=== PATIENT | female | born 1980 | race Caucasian/White ===

== ENCOUNTER 2017-08-26 18:10 | Inpatient (IN) | payer MEDICAID ==
[~2017-08-26] VITALS: Ht 172.7 cm; Wt 83.0 kg
[~2017-08-26 18:10] MED LIST: RISPC50 IM
[2017-08-26] MEDS ORDERED: HALOPERIDOL LACTATE 5 MG/ML VIAL IM ONE (22:45)
[2017-08-26] MEDS ORDERED: LORazepam 2 MG/ML VIAL IM ONE (22:45)
[2017-08-26] MEDS ORDERED: DiphenhydrAMINE HCL 50 MG/ML VIAL IM ONE (22:45)
[2017-08-27] MEDS ORDERED: HALOPERIDOL 5 MG TABLET PO PRN (00:30)
[2017-08-27] MEDS ORDERED: ZOLPIDEM TARTRATE 10 MG TABLET PO PRN (00:30)
[2017-08-27] MEDS ORDERED: LORazepam 2 MG TABLET PO PRN (00:30)
[2017-08-27 00:35] LABS: BASOPHILS % (AUTO) 0.6 % (0.0-2.0); EOSINOPHILS % (AUTO) 1.9 % (1.0-6.0); HEMATOCRIT 38.8 % (36-46); HEMOGLOBIN 13.4 g/dL (12.0-16.0); LYMPHOCYTES # (AUTO) 1.7 K/uL (1.0-4.8); LYMPHOCYTES % (AUTO) 23.8 % (22.0-44.0); MEAN CORPUSCULAR HEMOGLOBIN 30.2 pg (26.0-34.0); MEAN CORPUSCULAR HGB CONC 34.5 G/dL (31.0-37.0); MEAN CORPUSCULAR VOLUME 87 fL (80-100); MONOCYTES # (AUTO) 0.7 K/uL (0.1-1.0); MONOCYTES % (AUTO) 9.8 % (2.0-9.0); NEUTROPHILS # (AUTO) 4.5 K/uL (1.8-7.7); NEUTROPHILS % (AUTO) 63.9 % (40.0-70.0); PLATELET COUNT (AUTO) 298 K/uL (150-450); RED BLOOD CELL COUNT(AUTO) 4.45 MIL/uL (4.00-5.20); RED CELL DISTRIBUTION WIDTH 13.2 % (11.5-14.5)
[2017-08-27 00:43] LABS: ANION GAP 9 mmol/L (8-16); CALCIUM, TOTAL 8.1 mg/dL (8.8-10.5); CARBON DIOXIDE 26 mmol/L (22-29); CHLORIDE 100 mmol/L (98-107); CREATININE 0.75 mg/dL (0.60-1.30); GLOMERULAR FILTR. RATE CALC > 60 mL/min (>60); GLUCOSE,RANDOM 74 mg/dL (70-110); POTASSIUM 3.3 mmol/L (3.5-5.1); SODIUM SERUM 135 mmol/L (136-145); UREA NITROGEN, BLOOD 7 mg/dL (7-18)
[2017-08-27 00:49] LABS: ALANINE AMINOTRANSFERASE 23 U/L (12-78); ALBUMIN 3.3 g/dL (3.4-5.0); ALKALINE PHOSPHATASE 64 U/L (46-116); ASPARTATE AMINOTRANSFERASE 19 U/L (15-37); BILIRUBIN,TOTAL 0.4 mg/dL (0.1-1.0); CHOL/HDL RATIO 2.6 (3.9-5.7); CHOLESTEROL 126 mg/dL (131-200); HDL CHOLESTEROL 49 mg/dL (40-60); LDL CHOL (CALC.) 69 mg/dL (0-130); TRIGLYCERIDES 42 mg/dL (15-150)
[2017-08-27 11:51] VITALS: BP 109/63
[2017-08-27] MEDS ORDERED: POTASSIUM CHLORIDE 20 MEQ ER TABLET PO ONE (16:00)
[2017-08-27 16:30] VITALS: BP 110/78
[2017-08-27] MEDS: QUEtiapine FUMARATE 200 MG TABLET PO SCH (16:45)
[2017-08-27] MEDS: LITHIUM CARBONATE 300 MG CAPSULE PO SCH (16:45)
[2017-08-27] MEDS: DIVALPROEX SODIUM 500 MG DR TABLET PO SCH (16:45)
[2017-08-27] MEDS ORDERED: ACETAMINOPHEN 325 MG TABLET PO PRN (21:45)
[2017-08-27] MEDS ORDERED: DOCUSATE SODIUM 100 MG CAPSULE PO PRN (21:45)
[2017-08-27] MEDS ORDERED: ALBUTEROL SULFATE HFA 90 MCG/PUFF 8 GM INHALER IH PRN (21:45)
[2017-08-27] MEDS ORDERED: PETROLATUM,WHITE 71 GM JELLY TP PRN (21:45)
[2017-08-27] MEDS ORDERED: IBUPROFEN 400 MG TABLET PO PRN (21:45)
[2017-08-27] MEDS ORDERED: MAG HYDROX/AL HYDROX/SIMETH ES 30 ML SUSPENSION UDCUP PO PRN (21:45)
[2017-08-27] MEDS ORDERED: MAGNESIUM HYDROXIDE SUSPENSION 30 ML UDCUP PO PRN (21:45)
[2017-08-27] MEDS ORDERED: ONDANSETRON HCL 4 MG TABLET PO PRN (21:45)
[2017-08-28 07:05] VITALS: BP 115/74
[2017-08-28] MEDS: QUEtiapine FUMARATE 200 MG TABLET PO SCH ×2 (08:31→16:51)
[2017-08-28] MEDS: LITHIUM CARBONATE 300 MG CAPSULE PO SCH ×2 (08:32→16:50)
[2017-08-28] MEDS: NICOTINE 14 MG/24 HOUR PATCH TD SCH (08:32)
[2017-08-28] MEDS: DIVALPROEX SODIUM 500 MG DR TABLET PO SCH ×2 (08:32→16:50)
[2017-08-28 08:39] VITALS: BP 126/71
[2017-08-28 16:22] VITALS: BP 115/70
[2017-08-29 05:57] VITALS: BP 123/72
[2017-08-29 08:20] LABS: HEMOGLOBIN A1C 5.4 % (4.5-6.2)
[2017-08-29 08:24] VITALS: BP 126/74
[2017-08-29 08:37] LABS: CHOL/HDL RATIO 3.3 (3.9-5.7); POTASSIUM 4.1 mmol/L (3.5-5.1); THYROID STIMULATING HORMONE 0.29 uIU/mL (0.36-3.74)
[2017-08-29] MEDS: QUEtiapine FUMARATE 200 MG TABLET PO SCH ×2 (09:01→16:25)
[2017-08-29] MEDS: NICOTINE 14 MG/24 HOUR PATCH TD SCH (09:01)
[2017-08-29] MEDS: LITHIUM CARBONATE 300 MG CAPSULE PO SCH ×2 (09:02→16:25)
[2017-08-29] MEDS: DIVALPROEX SODIUM 500 MG DR TABLET PO SCH ×2 (09:02→16:25)
[2017-08-29 16:13] VITALS: BP 127/87
[2017-08-30 06:27] VITALS: BP 140/68
[2017-08-30] MEDS: QUEtiapine FUMARATE 200 MG TABLET PO SCH ×2 (08:29→16:59)
[2017-08-30] MEDS: LITHIUM CARBONATE 300 MG CAPSULE PO SCH ×2 (08:29→16:59)
[2017-08-30] MEDS: NICOTINE 14 MG/24 HOUR PATCH TD SCH (08:29)
[2017-08-30] MEDS: DIVALPROEX SODIUM 500 MG DR TABLET PO SCH ×2 (08:29→16:59)
[2017-08-30 08:37] VITALS: BP 131/73
[2017-08-30 16:45] VITALS: BP 109/79
[2017-08-31 06:32] VITALS: BP 104/60
[2017-08-31] MEDS: QUEtiapine FUMARATE 200 MG TABLET PO SCH ×2 (08:14→16:41)
[2017-08-31] MEDS: DIVALPROEX SODIUM 500 MG DR TABLET PO SCH ×2 (08:14→16:41)
[2017-08-31] MEDS: LITHIUM CARBONATE 300 MG CAPSULE PO SCH ×2 (08:14→16:41)
[2017-08-31] MEDS: NICOTINE 14 MG/24 HOUR PATCH TD SCH (08:14)
[2017-08-31 08:29] VITALS: BP 126/79
[2017-08-31 09:03] LABS: ANION GAP 7 mmol/L (8-16); CALCIUM, TOTAL 8.5 mg/dL (8.8-10.5); CARBON DIOXIDE 26 mmol/L (22-29); CHLORIDE 106 mmol/L (98-107); CREATININE 0.82 mg/dL (0.60-1.30); GLOMERULAR FILTR. RATE CALC > 60 mL/min (>60); GLUCOSE,RANDOM 66 mg/dL (70-110); POTASSIUM 3.8 mmol/L (3.5-5.1); SODIUM SERUM 139 mmol/L (136-145); UREA NITROGEN, BLOOD 19 mg/dL (7-18)
[2017-08-31 16:55] VITALS: BP 124/70
[2017-08-31 17:56] LABS: VALPROIC ACID 45 mcg/mL (50-100)
[2017-09-01 06:39] VITALS: BP 104/67
[2017-09-01] MEDS: LITHIUM CARBONATE 300 MG CAPSULE PO SCH ×3 (10:03→17:15)
[2017-09-01] MEDS: DIVALPROEX SODIUM 500 MG DR TABLET PO SCH ×2 (10:03→17:15)
[2017-09-01] MEDS: QUEtiapine FUMARATE 200 MG TABLET PO SCH ×2 (10:04→17:15)
[2017-09-01] MEDS: NICOTINE 14 MG/24 HOUR PATCH TD SCH (10:04)
[2017-09-01 10:10] VITALS: BP 118/56
[2017-09-01 17:52] VITALS: BP 131/73
[2017-09-02 06:37] VITALS: BP 103/65
[2017-09-02] MEDS: LITHIUM CARBONATE 300 MG CAPSULE PO SCH ×3 (08:43→16:44)
[2017-09-02] MEDS: QUEtiapine FUMARATE 200 MG TABLET PO SCH ×2 (08:43→16:44)
[2017-09-02] MEDS: DIVALPROEX SODIUM 500 MG DR TABLET PO SCH ×2 (08:43→16:44)
[2017-09-02] MEDS: NICOTINE 14 MG/24 HOUR PATCH TD SCH (08:43)
[2017-09-02 08:47] VITALS: BP 100/66
[2017-09-02 16:25] VITALS: BP 136/78
[2017-09-03] MEDS: DIVALPROEX SODIUM 500 MG DR TABLET PO SCH (08:25)
[2017-09-03] MEDS: NICOTINE 14 MG/24 HOUR PATCH TD SCH (08:25)
[2017-09-03] MEDS: QUEtiapine FUMARATE 200 MG TABLET PO SCH (08:25)
[2017-09-03] MEDS: LITHIUM CARBONATE 300 MG CAPSULE PO SCH ×2 (08:25→12:17)
[2017-09-03 08:39] VITALS: BP 101/58
[2017-09-03] MEDS ORDERED: DIVA250T4 PO (13:13)
[2017-09-03] MEDS ORDERED: LITH300T4 PO (13:13)
[2017-09-03] MEDS ORDERED: QUET400T PO (13:14)
== END 2017-09-03 13:30 | disposition home or self-care (01) | DRG 750 ==
LOC: EMS 18:11 → B3A 08-27 08:04
PROVIDERS: ADMIT Psychiatry & Neurology Psychiatry; ATTEND Psychiatry & Neurology Psychiatry
DX: F25.9 Schizoaffective disorder, unspecified (principal); E87.1 Hypo-osmolality and hyponatremia; Z78.1 Physical restraint status; J44.9 Chronic obstructive pulmonary disease, unspecified; E87.6 Hypokalemia; F10.10 Alcohol abuse, uncomplicated; F15.90 Other stimulant use, unspecified, uncomplicated; K21.9 Gastro-esophageal reflux disease without esophagitis; F19.10 Other psychoactive substance abuse, uncomplicated; F17.210 Nicotine dependence, cigarettes, uncomplicated; Z71.6 Tobacco abuse counseling; Z71.41 Alcohol abuse counseling and surveillance of alcoholic; Z79.899 Other long term (current) drug therapy; Z79.51 Long term (current) use of inhaled steroids; Z71.51 Drug abuse counseling and surveillance of drug abuser; Z88.8 Allergy status to other drugs, medicaments and biological substances; Z84.89 Family history of other specified conditions; Z81.8 Family history of other mental and behavioral disorders
CPT/HCPCS: 83036; 84132; 84439; 84443; 96372; 99291; G0480; J1200; J1630; J2060

== ENCOUNTER 2023-11-14 13:14 | Emergency (ER) | payer MEDICAID, OTHER ==
[~2023-11-14] VITALS: Ht 170.2 cm; Wt 59.1 kg
[~2023-11-14 13:14] MED LIST changes: +PALI9TAB15 PO; -RISPC50 IM
[2023-11-14 13:20] VITALS: BP 94/65; PULSE 73; RESP 14; TEMP 98.3; O2SAT 98
[2023-11-14 14:29] LABS: COVID AG,FIA SOURCE NASAL SWAB
[2023-11-14 14:31] LABS: BASOPHILS % (AUTO) 0.7 % (0.0-2.0); EOSINOPHILS % (AUTO) 2.3 % (1.0-6.0); HEMATOCRIT 41.9 % (36-46); HEMOGLOBIN 13.9 g/dL (12.0-16.0); LYMPHOCYTES # (AUTO) 2.2 K/uL (1.0-4.8); LYMPHOCYTES % (AUTO) 33.1 % (22.0-44.0); MEAN CORPUSCULAR HEMOGLOBIN 31.1 pg (26.0-34.0); MEAN CORPUSCULAR HGB CONC 33.2 G/dL (31.0-37.0); MEAN CORPUSCULAR VOLUME 94 fL (80-100); MONOCYTES # (AUTO) 0.5 K/uL (0.1-1.0); MONOCYTES % (AUTO) 7.6 % (2.0-9.0); NEUTROPHILS # (AUTO) 3.7 K/uL (1.8-7.7); NEUTROPHILS % (AUTO) 56.3 % (40.0-70.0); PLATELET COUNT (AUTO) 324 K/uL (150-450); RED BLOOD CELL COUNT(AUTO) 4.48 MIL/uL (4.00-5.20); RED CELL DISTRIBUTION WIDTH 13.5 % (11.5-14.5); WHITE BLOOD COUNT (AUTO) 6.6 K/uL (4.5-11.0)
[2023-11-14 14:39] LABS: ANION GAP 10 mmol/L (8-16); CALCIUM, TOTAL 8.7 mg/dL (8.8-10.5); CARBON DIOXIDE 25 mmol/L (22-29); CHLORIDE 102 mmol/L (98-107); CREATININE 0.82 mg/dL (0.60-1.30); GLOMERULAR FILTR. RATE CALC > 60 mL/min (>60); GLUCOSE,RANDOM 126 mg/dL (70-110); POTASSIUM 3.7 mmol/L (3.5-5.1); SODIUM SERUM 137 mmol/L (136-145); UREA NITROGEN, BLOOD 6 mg/dL (7-18)
[2023-11-14 14:44] LABS: ALCOHOL, BLOOD (SERUM) < 3 mg/dL (0-10)
[2023-11-14 14:53] LABS: SARS-COV2 (COVID) ANTIGEN,FIA Negative (Negative)
[2023-11-14] MEDS ORDERED: ACET-66 PO (15:16)
[2023-11-14] MEDS ORDERED: QUET100T PO (15:16)
[2023-11-14 15:45] LABS: ALCOHOL, URINE DRUG SCREEN NEGATIVE (NEGATIVE); AMPHET/METH SCREEN,URINE NEGATIVE (NEGATIVE); BARBITURATE SCREEN, URINE NEGATIVE (NEGATIVE); BENZODIAZEPINES SCREEN,URINE NEGATIVE (NEGATIVE); CANNABINOID SCREEN,URINE NEGATIVE (NEGATIVE); COCAINE SCREEN,URINE NEGATIVE (NEGATIVE); METHADONE SCREEN, URINE NEGATIVE (NEGATIVE); OPIATE SCREEN,URINE NEGATIVE (NEGATIVE); PHENCYCLIDINE SCREEN,URINE NEGATIVE (NEGATIVE)
== END 2023-11-14 15:26 | disposition home or self-care (01) ==
LOC: EMS 13:18
DX: F20.0 Paranoid schizophrenia (principal); F17.210 Nicotine dependence, cigarettes, uncomplicated; Z98.890 Other specified postprocedural states; Z88.8 Allergy status to other drugs, medicaments and biological substances; Z20.822 Contact with and (suspected) exposure to COVID-19
CPT/HCPCS: 99283; 87426; 80048; 85025; 36415; 80307; G0480

== ENCOUNTER 2023-12-26 10:59 | Emergency (ER) | payer OTHER ==
[~2023-12-26] VITALS: Ht 172.7 cm; Wt 63.6 kg
[~2023-12-26 10:59] MED LIST changes: +ACET-66 PO; +QUET100T PO
[2023-12-26 11:19] VITALS: TEMP 97.8
[2023-12-26 12:04] LABS: BASOPHILS % (AUTO) 0.7 % (0.0-2.0); EOSINOPHILS % (AUTO) 1.4 % (1.0-6.0); HEMATOCRIT 41.2 % (36-46); HEMOGLOBIN 13.8 g/dL (12.0-16.0); LYMPHOCYTES % (AUTO) 24.3 % (22.0-44.0); MEAN CORPUSCULAR HEMOGLOBIN 31.1 pg (26.0-34.0); MEAN CORPUSCULAR HGB CONC 33.4 G/dL (31.0-37.0); MEAN CORPUSCULAR VOLUME 93 fL (80-100); MONOCYTES # (AUTO) 0.6 K/uL (0.1-1.0); MONOCYTES % (AUTO) 7.8 % (2.0-9.0); NEUTROPHILS # (AUTO) 5.4 K/uL (1.8-7.7); NEUTROPHILS % (AUTO) 65.8 % (40.0-70.0); PLATELET COUNT (AUTO) 363 K/uL (150-450); RED BLOOD CELL COUNT(AUTO) 4.42 MIL/uL (4.00-5.20); RED CELL DISTRIBUTION WIDTH 13.1 % (11.5-14.5); WHITE BLOOD COUNT (AUTO) 8.3 K/uL (4.5-11.0)
[2023-12-26 12:39] LABS: ALCOHOL, BLOOD (SERUM) < 3 mg/dL (0-10)
[2023-12-26 12:56] VITALS: BP 138/86; PULSE 92; RESP 16; O2SAT 99
[2023-12-26 13:02] LABS: ANION GAP 4 mmol/L (8-16); CALCIUM, TOTAL 8.5 mg/dL (8.8-10.5); CARBON DIOXIDE 28 mmol/L (22-29); CHLORIDE 106 mmol/L (98-107); CREATININE 0.64 mg/dL (0.60-1.30); GLOMERULAR FILTR. RATE CALC > 60 mL/min (>60); GLUCOSE,RANDOM 87 mg/dL (70-110); POTASSIUM 3.9 mmol/L (3.5-5.1); SODIUM SERUM 138 mmol/L (136-145); UREA NITROGEN, BLOOD 6 mg/dL (7-18)
[2023-12-26] MEDS: ACETAMINOPHEN 500 MG TABLET PO ONE (14:05)
[2023-12-26] MEDS: IBUPROFEN 200 MG TABLET PO ONE (14:05)
[2023-12-26] MEDS: GuaiFENesin/D-METHORPHAN [SUGAR-FREE] 200-20MG/10 ML SYRUP UDCUP PO ONE (14:05)
[2023-12-26 16:44] LABS: ALCOHOL, URINE DRUG SCREEN NEGATIVE (NEGATIVE); AMPHET/METH SCREEN,URINE NEGATIVE (NEGATIVE); BARBITURATE SCREEN, URINE NEGATIVE (NEGATIVE); BENZODIAZEPINES SCREEN,URINE NEGATIVE (NEGATIVE); CANNABINOID SCREEN,URINE NEGATIVE (NEGATIVE); COCAINE SCREEN,URINE NEGATIVE (NEGATIVE); METHADONE SCREEN, URINE NEGATIVE (NEGATIVE); OPIATE SCREEN,URINE NEGATIVE (NEGATIVE); PHENCYCLIDINE SCREEN,URINE NEGATIVE (NEGATIVE)
[2023-12-26 18:16] LABS: COVID AG,FIA SOURCE NASAL SWAB
[2023-12-26 18:41] LABS: SARS-COV2 (COVID) ANTIGEN,FIA Negative (Negative)
[2023-12-26 18:42] LABS: INFLUENZA TYPE A NEGATIVE FOR TYPE A (NEGATIVE); INFLUENZA TYPE B NEGATIVE FOR TYPE B (NEGATIVE)
[2023-12-26] MEDS ORDERED: GUAIFDM PO (18:46)
[2023-12-26] MEDS ORDERED: IBUP-1554 PO (18:46)
== END 2023-12-26 19:20 | disposition home or self-care (01) ==
LOC: EMS 11:00
DX: J06.9 Acute upper respiratory infection, unspecified (principal); F20.9 Schizophrenia, unspecified; Z20.822 Contact with and (suspected) exposure to COVID-19; Z88.8 Allergy status to other drugs, medicaments and biological substances
CPT/HCPCS: 99284; 71045; 87426; 80048; 84703; 85025; 87804; 36415; 80307; G0480

== ENCOUNTER 2023-12-31 00:25 | Inpatient (IN) | payer MEDICAID, OTHER ==
[~2023-12-31 00:25] MED LIST changes: +GUAIFDM PO; +IBUP-1554 PO; -PALI9TAB15 PO; -QUET100T PO
[2024-01-01 05:04] VITALS: PULSE 84; RESP 18; TEMP 97.8; O2SAT 98
[2024-01-01] MEDS: BACITRACIN 28 GM OINTMENT TP SCH (08:23)
[2024-01-01 08:42] VITALS: BP 111/60; PULSE 76; RESP 16; TEMP 97.1; O2SAT 97
[2024-01-01] MEDS: ARIPiprazole 15 MG TABLET PO SCH (11:38)
[2024-01-01] MEDS ORDERED: CloNIDine HCL 0.1 MG TABLET PO PRN (13:45)
[2024-01-01] MEDS ORDERED: DOCUSATE SODIUM 100 MG CAPSULE PO PRN (13:45)
[2024-01-01] MEDS ORDERED: PETROLATUM,WHITE 28 GM JELLY TP PRN (13:45)
[2024-01-01] MEDS ORDERED: NICOTINE 14 MG/24 HOUR PATCH TD PRN (13:45)
[2024-01-01] MEDS ORDERED: ONDANSETRON 4 MG TABLET PO PRN (13:45)
[2024-01-01] MEDS ORDERED: LOPERAMIDE HCL 2 MG CAPSULE PO PRN (13:45)
[2024-01-01] MEDS ORDERED: ALBUTEROL SULFATE HFA 90 MCG/PUFF 8 GM INHALER IH PRN (13:45)
[2024-01-01] MEDS ORDERED: MAG HYDROX/ALUMINUM HYD/SIMETH ES 30 ML SUSPENSION UDCUP PO PRN (13:45)
[2024-01-01] MEDS ORDERED: GuaiFENesin/D-METHORPHAN [SUGAR-FREE] 200-20MG/10 ML SYRUP UDCUP PO PRN (13:45)
[2024-01-01] MEDS ORDERED: MAGNESIUM HYDROXIDE SUSPENSION 30 ML UDCUP PO PRN (13:45)
[2024-01-02] MEDS: HALOPERIDOL 5 MG TABLET PO PRN (10:33)
[2024-01-02] MEDS: LORazepam 2 MG TABLET PO PRN (10:33)
[2024-01-02 11:10] VITALS: BP 130/82; PULSE 95; RESP 18; TEMP 97; O2SAT 97
[2024-01-03 10:18] VITALS: BP 118/75; PULSE 80; RESP 16; TEMP 97; O2SAT 97
[2024-01-03 20:28] VITALS: BP 120/62; RESP 16; TEMP 97.3; O2SAT 97
[2024-01-03 20:34] VITALS: BP 98/60; PULSE 72; TEMP 97.5
[2024-01-04 08:56] VITALS: RESP 16
[2024-01-04 10:26] LABS: APPEARANCE,URINE CLEAR (CLEAR); BILIRUBIN,URINE NEGATIVE (NEGATIVE); COLOR,URINE COLORLESS (YELLOW); GLUCOSE, URINE (UA) NEGATIVE (NEGATIVE); KETONES,URINE NEGATIVE (NEGATIVE); LEUKOCYTE ESTERASE ,URINE NEGATIVE (NEGATIVE); NITRATE,URINE NEGATIVE (NEGATIVE); OCCULT BLOOD,URINE NEGATIVE (NEGATIVE); PROTEIN,URINE NEGATIVE (NEGATIVE); SPECIFIC GRAVITIY, URINE 1.008 (1.003-1.030); UROBILINOGEN,URINE <=1.0 mg/dL (<=1.0)
[2024-01-04 10:33] LABS: ALCOHOL, URINE DRUG SCREEN NEGATIVE (NEGATIVE); AMPHET/METH SCREEN,URINE NEGATIVE (NEGATIVE); BARBITURATE SCREEN, URINE NEGATIVE (NEGATIVE); BENZODIAZEPINES SCREEN,URINE NEGATIVE (NEGATIVE); CANNABINOID SCREEN,URINE NEGATIVE (NEGATIVE); COCAINE SCREEN,URINE NEGATIVE (NEGATIVE); METHADONE SCREEN, URINE NEGATIVE (NEGATIVE); OPIATE SCREEN,URINE NEGATIVE (NEGATIVE); PHENCYCLIDINE SCREEN,URINE NEGATIVE (NEGATIVE)
[2024-01-04] MEDS ORDERED: LORazepam 2 MG/ML VIAL ONE (17:22)
[2024-01-04] MEDS ORDERED: DiphenhydrAMINE HCL 50 MG/ML VIAL ONE (17:22)
[2024-01-04] MEDS ORDERED: HALOPERIDOL LACTATE 5 MG/ML VIAL ONE (17:22)
[2024-01-04] MEDS: DiphenhydrAMINE HCL 50 MG/ML VIAL IM ONE (17:36)
[2024-01-04] MEDS: HALOPERIDOL LACTATE 5 MG/ML VIAL IM ONE (17:36)
[2024-01-04] MEDS: LORazepam 2 MG/ML VIAL IM ONE (17:36)
[2024-01-05 08:49] VITALS: BP 116/66; PULSE 80; RESP 16; TEMP 97.6; O2SAT 97
[2024-01-05 20:21] VITALS: BP 125/73; PULSE 78; RESP 18; TEMP 97.9
[2024-01-06 09:30] VITALS: BP 113/60; PULSE 64; RESP 16; TEMP 96.2; O2SAT 96
[2024-01-06 20:27] VITALS: RESP 17
[2024-01-07] MEDS: ACETAMINOPHEN 325 MG TABLET PO PRN (00:30)
[2024-01-07 09:40] VITALS: BP 103/77; PULSE 100; RESP 17; TEMP 98.2; O2SAT 96
[2024-01-07 23:40] VITALS: RESP 18
[2024-01-08 12:56] VITALS: RESP 16
[2024-01-08 20:13] VITALS: BP 130/70; PULSE 75; RESP 18; TEMP 96.3; O2SAT 100
[2024-01-09 08:26] VITALS: BP 109/74; PULSE 94; RESP 16; TEMP 96.9; O2SAT 100
[2024-01-09 14:30] VITALS: BP 119/73; PULSE 89; RESP 18; TEMP 97.2; O2SAT 98
[2024-01-09 20:45] VITALS: RESP 16
[2024-01-10 08:12] VITALS: RESP 18
[2024-01-10] MEDS: ZOLPIDEM TARTRATE 10 MG TABLET PO PRN (20:14)
[2024-01-10 20:37] VITALS: BP 117/74; PULSE 82; RESP 17; TEMP 97.4; O2SAT 95
[2024-01-10] MEDS: IBUPROFEN 400 MG TABLET PO PRN (22:11)
[2024-01-10 22:13] VITALS: RESP 18
[2024-01-11 14:29] VITALS: BP 105/70; PULSE 95; RESP 16; TEMP 97.7; O2SAT 96
[2024-01-11 21:52] VITALS: RESP 18
[2024-01-11 22:52] VITALS: RESP 17
[2024-01-12 08:08] VITALS: BP 109/64; PULSE 69; RESP 16; TEMP 97.6; O2SAT 96
[2024-01-12 20:12] VITALS: BP 121/98; PULSE 85; RESP 16; TEMP 98.4; O2SAT 99
[2024-01-13 08:18] VITALS: BP 105/60; PULSE 62; RESP 16; TEMP 96.8; O2SAT 97
[2024-01-13] MEDS ORDERED: ARIP15TA27 PO ×2 (11:36→12:42)
[2024-01-13] MEDS ORDERED: ARIP15TA2 PO (12:41)
== END 2024-01-13 13:15 | disposition home or self-care (01) | DRG 750 ==
LOC: B3A 01-01 05:16 → B2S 01-06 19:56
PROVIDERS: ADMIT Psychiatry & Neurology Psychiatry; ATTEND Psychiatry & Neurology Psychiatry
PROC: GZHZZZZ Group Psychotherapy (ICD-10-PCS; principal; 2024-01-01)
PROC: GZ56ZZZ Individual Psychotherapy, Supportive (ICD-10-PCS; 2024-01-01)
DX: F20.0 Paranoid schizophrenia (principal); F17.200 Nicotine dependence, unspecified, uncomplicated; I10 Essential (primary) hypertension; J44.9 Chronic obstructive pulmonary disease, unspecified; F41.9 Anxiety disorder, unspecified; Z79.899 Other long term (current) drug therapy
CPT/HCPCS: 80307; 81003; J1200; J1630; J2060

== ENCOUNTER 2023-12-31 23:45 | Emergency (ER) | payer MEDICAID, OTHER ==
[~2023-12-31] VITALS: Ht 167.6 cm; Wt 68.2 kg
[2024-01-01 01:55] LABS: COVID AG,FIA SOURCE NASAL SWAB
[2024-01-01 02:03] VITALS: BP 114/75; PULSE 52; RESP 19; O2SAT 98
[2024-01-01 02:04] LABS: SARS-COV2 (COVID) ANTIGEN,FIA Negative (Negative)
[2024-01-01] MEDS ORDERED: BACITRACIN 28 GM OINTMENT TP SCH (09:00)
== END 2024-01-01 03:00 ==
LOC: EMS 23:45 → B3A 01-01 05:16 → UNDOADMIN 01-01 05:16
DX: F20.9 Schizophrenia, unspecified (principal); Z20.822 Contact with and (suspected) exposure to COVID-19
CPT/HCPCS: 99285; Z7502

== ENCOUNTER 2024-07-03 00:18 | Emergency (ER) | payer MEDICAID, OTHER ==
[~2024-07-03] VITALS: Ht 175.3 cm; Wt 68.2 kg
[~2024-07-03 00:18] MED LIST changes: -ACET-66 PO; +ARIP15TA2 PO; +ARIP15TA27 PO; -GUAIFDM PO; -IBUP-1554 PO
[2024-07-03 00:21] VITALS: BP 130/76; PULSE 107; RESP 18; TEMP 98.3; O2SAT 98
== END 2024-07-03 06:54 | disposition home or self-care (01) ==
LOC: EMS 00:18
DX: F20.0 Paranoid schizophrenia (principal); F17.210 Nicotine dependence, cigarettes, uncomplicated; Z88.8 Allergy status to other drugs, medicaments and biological substances; Z79.899 Other long term (current) drug therapy
CPT/HCPCS: 99281; Z7502

== ENCOUNTER 2024-08-09 07:32 | Emergency (ER) | payer OTHER ==
[~2024-08-09] VITALS: Ht 172.7 cm; Wt 63.6 kg
[2024-08-09 07:35] VITALS: BP 122/76; PULSE 56; RESP 16; O2SAT 100
== END 2024-08-09 17:27 | disposition home or self-care (01) ==
LOC: EMS 07:40
DX: F25.9 Schizoaffective disorder, unspecified (principal); F17.210 Nicotine dependence, cigarettes, uncomplicated; Z79.899 Other long term (current) drug therapy; Z88.8 Allergy status to other drugs, medicaments and biological substances
CPT/HCPCS: 99285; Z7502